=== PATIENT | male | born 1965 | race Hispanic/Latino ===

== ENCOUNTER → 2021-05-18 | Outpatient (CLI) | payer BC | END | disposition home or self-care (01) | LOC: RAH 08:39 | PROVIDERS: ATTEND Family Medicine | DX: I07.1 Rheumatic tricuspid insufficiency (principal); R55 Syncope and collapse; G47.30 Sleep apnea, unspecified | CPT/HCPCS: 93306; 93356 ==

== ENCOUNTER → 2021-09-12 | Outpatient (CLI) | payer BC | END | disposition home or self-care (01) | LOC: RAH 08:38 | PROVIDERS: ATTEND Family Medicine | DX: S09.90XA Unspecified injury of head, initial encounter (principal); X58.XXXA Exposure to other specified factors, initial encounter; Y93.89 Activity, other specified; Y92.89 Other specified places as the place of occurrence of the external cause; Y99.8 Other external cause status | CPT/HCPCS: 70450 ==

== ENCOUNTER 2021-10-19 14:16 | Observation (INO) | payer BC ==
[~2021-10-19] VITALS: Ht 172.7 cm; Wt 83.1 kg
[2021-10-19] MEDS ORDERED: ACETAMINOPHEN 500 MG TABLET PO ONE (14:30)
[2021-10-19] MEDS ORDERED: CLINDAMYCIN IVPB 600MG/50ML 50 ML IV SCH (14:30)
[2021-10-19] MEDS ORDERED: TETANUS/DIPHTHERIA TOXOID [ADULT] 0.5 ML VIAL IM ONE ×2 (15:15→15:30)
[2021-10-19] MEDS ORDERED: ACET-66 PO (16:22)
[2021-10-19] MEDS ORDERED: LIDOCAINE HCL 1% 20 ML VIAL ONE (17:19)
[2021-10-19] MEDS ORDERED: ACETAMINOPHEN 325 MG TAB PO PRN (19:00)
[2021-10-19] MEDS: TRAMADOL HCL 50 MG TABLET PO PRN (19:02)
[2021-10-19 19:29] LABS: CREATININE 1.2 mg/dL (0.5-1.5); MAGNESIUM 1.6 mg/dL (1.80-2.40); POTASSIUM 3.9 mmol/L (3.5-5.1)
[2021-10-19] MEDS: 0.9%NACL 1000ML 1,000 ML IV SCH (19:30)
[2021-10-19 19:31] LABS: HEMATOCRIT 45.3 % (42-54); MEAN CORPUSCULAR HEMOGLOBIN 29.5 pg (27.0-33.0); MEAN CORPUSCULAR HGB CONC 34.2 g/dL (32.0-36.0); MEAN CORPUSCULAR VOLUME 86.3 fL (79-99); RED BLOOD CELL COUNT(AUTO) 5.25 MIL/uL (4.50-6.20); RED CELL DISTRIBUTION WIDTH 12.1 % (11.0-15.5); WHITE BLOOD COUNT (AUTO) 5.5 K/uL (4.8-10.8)
[2021-10-19 19:40] LABS: BILIRUBIN,TOTAL 0.6 mg/dL (0.2-1.0)
[2021-10-19] MEDS ORDERED: MAGNESIUM 2GM PREMIX 50ML 50 ML IV PRN (20:30)
[2021-10-19] MEDS: INSULIN HUMULIN R 100 UNIT/ML 3ML SQ SCH (20:37)
[2021-10-19] MEDS: MORPHINE 2 MG SYG IVP PRN (20:49)
[2021-10-19] MEDS ORDERED: CLINDAMYCIN IVPB 600MG/50ML 50 ML IV ONE (20:49)
[2021-10-19] MEDS: CLINDAMYCIN IVPB 600MG/50ML 50 ML IV SCH (21:00)
[2021-10-20] VITALS (23 sets, daily range): BP systolic 128–164; BP diastolic 53–94
[2021-10-20] MEDS: MORPHINE 2 MG SYG IVP PRN ×3 (02:20→15:01)
[2021-10-20] MEDS ORDERED: PARO40TA PO (03:47)
[2021-10-20] MEDS: CLINDAMYCIN IVPB 600MG/50ML 50 ML IV SCH ×3 (05:19→22:12)
[2021-10-20] MEDS: TRAMADOL HCL 50 MG TABLET PO PRN ×2 (05:24→10:27)
[2021-10-20 06:26] LABS: HEMATOCRIT 44.9 % (42-54); MEAN CORPUSCULAR HGB CONC 33.6 g/dL (32.0-36.0); MEAN CORPUSCULAR VOLUME 89.1 fL (79-99); RED BLOOD CELL COUNT(AUTO) 5.04 MIL/uL (4.50-6.20); RED CELL DISTRIBUTION WIDTH 12.5 % (11.0-15.5); WHITE BLOOD COUNT (AUTO) 6.4 K/uL (4.8-10.8)
[2021-10-20 06:47] LABS: CREATININE 0.9 mg/dL (0.5-1.5); MAGNESIUM 1.6 mg/dL (1.80-2.40); POTASSIUM 3.9 mmol/L (3.5-5.1); THYROID STIMULATING HORMONE 2.54 uIU/mL (0.36-3.74)
[2021-10-20] MEDS: INSULIN HUMULIN R 100 UNIT/ML 3ML SQ SCH ×4 (06:53→21:00)
[2021-10-20] MEDS: 0.9%NACL 1000ML 1,000 ML IV SCH ×3 (08:20→22:12)
[2021-10-20] MEDS ORDERED: DEXAMETHASONE SOD PHOSPHATE 10MG/ML 1ML VIAL ONE (17:58)
[2021-10-20] MEDS ORDERED: LIDOCAINE PF 100MG/5ML (2%) SYRINGE 5ML ONE (17:58)
[2021-10-20] MEDS ORDERED: SUCCINYLCHOLINE CHLORIDE 20 MG/ML 10 ML VIAL ONE (17:58)
[2021-10-20] MEDS ORDERED: MIDAZOLAM HCL 1 MG/ML 2ML VIAL ONE (17:59)
[2021-10-20] MEDS ORDERED: GLYCOPYRROLATE 1 MG/5 ML SYRINGE ONE (18:00)
[2021-10-20] MEDS ORDERED: NEOSTIGMINE 5MG/5ML SYR IV ONE (18:00)
[2021-10-20] MEDS ORDERED: ONDANSETRON 4MG INJ ONE (18:00)
[2021-10-20] MEDS ORDERED: ROCURONIUM 10MG/1ML SYR 10 MG/ML ML ONE (18:01)
[2021-10-20] MEDS ORDERED: FENTANYL CITRATE PF 50 MCG/1 ML 2ML VIAL ONE (18:01)
[2021-10-20] MEDS ORDERED: PROPOFOL 10 MG/ML 20ML VIAL IV ONE (18:01)
[2021-10-20] MEDS ORDERED: PHENYLEPHRINE HCL 10 MG/ML 1ML VIAL IV ONE (18:02)
[2021-10-20] MEDS ORDERED: BUPIVACAINE/PF 0.25% 30ML VIAL IJ ONE (18:16)
[2021-10-20] MEDS ORDERED: CALCIUM CARB 500MG PO PRN (20:00)
[2021-10-20] MEDS ORDERED: HYDROCODONE/ACETAMINOPHEN 5/325 MG TAB PO PRN (20:00)
[2021-10-20] MEDS ORDERED: KCL 20 MEQ ERTAB PO PRN (20:00)
[2021-10-20] MEDS ORDERED: FERROUS FUMARATE 324 MG TABLET PO PRN (20:00)
[2021-10-20] MEDS ORDERED: POTASSIUM CHLORIDE 20MEQ/100ML 100 ML IV PRN (20:00)
[2021-10-20] MEDS ORDERED: DIPHENHYDRAMINE HCL 25 MG CAPSULE PO PRN (20:00)
[2021-10-20] MEDS ORDERED: DiphenhydrAMINE HCL 50 MG/ML VIAL IVP PRN (20:00)
[2021-10-20] MEDS ORDERED: POTASSIUM CHLORIDE 10% ELIXIR 20 MEQ/15 ML UDCUP PO PRN (20:00)
[2021-10-20] MEDS: ACETAMINOPHEN 500 MG TABLET PO SCH (22:12)
[2021-10-21] VITALS (9 sets, daily range): BP systolic 112–142; BP diastolic 59–83
[2021-10-21] MEDS: CLINDAMYCIN IVPB 600MG/50ML 50 ML IV SCH ×3 (05:29→22:08)
[2021-10-21] MEDS: ACETAMINOPHEN 500 MG TABLET PO SCH ×3 (05:29→19:14)
[2021-10-21] MEDS: 0.9%NACL 1000ML 1,000 ML IV SCH ×2 (05:30→16:00)
[2021-10-21] MEDS: INSULIN HUMULIN R 100 UNIT/ML 3ML SQ SCH ×2 (06:06→11:30)
[2021-10-21] MEDS: POLYETHYLENE GLYCOL 3350 17 GM POWD.PACK PO SCH (10:02)
[2021-10-21] MEDS: PAROXETINE HCL 20 MG TABLET PO SCH (10:02)
[2021-10-21] MEDS: PSYLLIUM SEED 1 EACH PACKET PO SCH (12:07)
[2021-10-22 00:20] VITALS: BP 136/75
[2021-10-22] MEDS ORDERED: CLIN-141 PO (00:48)
[2021-10-22] MEDS ORDERED: TETANUS IMMUNE GLOBULIN 250 UNIT SYRINGE IM SCH (01:00)
[2021-10-22] MEDS: ACETAMINOPHEN 500 MG TABLET PO SCH ×2 (03:57→12:59)
[2021-10-22 04:00] VITALS: BP 150/80
[2021-10-22] MEDS: CLINDAMYCIN IVPB 600MG/50ML 50 ML IV SCH ×2 (05:16→14:22)
[2021-10-22 08:00] VITALS: BP 157/75
[2021-10-22] MEDS: POLYETHYLENE GLYCOL 3350 17 GM POWD.PACK PO SCH (09:43)
[2021-10-22] MEDS: PAROXETINE HCL 20 MG TABLET PO SCH (09:43)
[2021-10-22 11:46] LABS: BASOPHILS % (AUTO) 0.4 % (0.0-5.0); EOSINOPHILS % (AUTO) 2.4 % (0.0-8.0); HEMATOCRIT 41.8 % (42-54); LYMPHOCYTES % (AUTO) 25.8 % (21.0-51.0); MEAN CORPUSCULAR HEMOGLOBIN 29.8 pg (27.0-33.0); MEAN CORPUSCULAR HGB CONC 34.2 g/dL (32.0-36.0); MEAN CORPUSCULAR VOLUME 87.1 fL (79-99); MONOCYTES % (AUTO) 7.2 % (3.0-13.0); NEUTROPHILS % (AUTO) 63.8 % (40.0-77.0); PLATELET COUNT (AUTO) 156 K/uL (130-400); RED CELL DISTRIBUTION WIDTH 12.3 % (11.0-15.5); WHITE BLOOD COUNT (AUTO) 5.4 K/uL (4.8-10.8)
[2021-10-22 11:53] LABS: POTASSIUM 4.3 mmol/L (3.5-5.1)
[2021-10-22 12:00] VITALS: BP 126/77
[2021-10-22] MEDS: PSYLLIUM SEED 1 EACH PACKET PO SCH (12:59)
[2021-10-22 16:00] VITALS: BP 134/78
[2021-10-22] MEDS ORDERED: BISACODYL 5 MG TABLET.DR PO PRN (20:00)
[2021-10-22] MEDS ORDERED: LISINOPRIL 10 MG TABLET PO SCH (21:00)
[2021-10-23] MEDS ORDERED: BISACODYL 10 MG SUPP.RECT RC PRN (20:00)
== END 2021-10-22 17:15 | disposition home or self-care (01) ==
LOC: EDH 14:16 → EDHIP 18:49 → 3AH 10-20 02:57 → 4BH 10-20 20:50
PROVIDERS: ADMIT Internal Medicine; ATTEND Internal Medicine
DX: U07.1 COVID-19 (principal); S60.947A Unspecified superficial injury of left little finger, initial encounter; S62.617B Displaced fracture of proximal phalanx of left little finger, initial encounter for open fracture; S52.121A Displaced fracture of head of right radius, initial encounter for closed fracture; S66.327A Laceration of extensor muscle, fascia and tendon of left little finger at wrist and hand level, initial encounter; S09.90XA Unspecified injury of head, initial encounter; F32.A Depression, unspecified; Z79.899 Other long term (current) drug therapy; Z98.890 Other specified postprocedural states; Z71.85 Encounter for immunization safety counseling; Z23 Encounter for immunization; W31.2XXA Contact with powered woodworking and forming machines, initial encounter; W29.3XXA Contact with powered garden and outdoor hand tools and machinery, initial encounter; Y93.89 Activity, other specified; Y92.89 Other specified places as the place of occurrence of the external cause; Y99.8 Other external cause status
CPT/HCPCS: 11012; 26410; 26746; 36415 ×3; 70450; 71045; 72125; 73030; 73070; 73120 ×2; 73140 ×2; 80048 ×2; 80053; 82948 ×2; 83735 ×2; 84443; 85025; 85027 ×2; 87635; 90471; 90714; 96365; 96366 ×3; 96375 ×2; 96376 ×2; 97161; 99285; A4649; A4930 ×2; A6445; C1713; G0378 ×67; J0330; J1100; J2001; J2250; J2370; J2405; J2704; J2710; J3010; J3475; J3490 ×12; J1670

== ENCOUNTER → 2022-06-21 | Outpatient (CLI) | payer BC ==
[~2022-06-21] MED LIST: ACET-66 PO; CLIN-141 PO; PARO40TA PO
== END | disposition home or self-care (01) ==
LOC: RAH 08:15
PROVIDERS: ATTEND Family Medicine
DX: K21.9 Gastro-esophageal reflux disease without esophagitis (principal); K44.9 Diaphragmatic hernia without obstruction or gangrene
CPT/HCPCS: 74240